=== PATIENT | female | born 1955 | race Caucasian/White ===

== ENCOUNTER → 2022-01-12 | Outpatient (CLI) | payer OTHER ==
[~2022-01-12] MED LIST: ACTOS15 MG PO; ADULT ASPIRIN R81 MG PO; ATACAND32 MG PO; GLUMETZA1000 PO; LEVO-T100 MCG PO; LIPITOR 10 MG10 M1 PO; METOPROLOL SUCC50 MG PO; NORVASC5 MG PO; PROBIOTIC1 EAC1 PO; RYBELSUS7 MG PO
== END ==
LOC: LAB 10:17
PROVIDERS: ATTEND Student in an Organized Health Care Education/Training Program
DX: Z01.812 Encounter for preprocedural laboratory examination (principal); Z20.822 Contact with and (suspected) exposure to COVID-19